=== PATIENT | female | born 1995 | race Caucasian/White ===

== ENCOUNTER 2017-05-15 21:45 | Emergency (ER) | payer SELFPAY ==
[2017-05-15 22:19] VITALS: BP 128/75; PULSE 75; TEMP 98.5; O2SAT 100
--- NOTE | 2017-05-15 23:37 | C.PDOC ---
History Of Present Illness 21 year old female presents to the ED with complaints of a spot of erythema to the right breast noticed today. She denies itching, swelling, or pain. Time Seen by Provider: 05/15/17 22:55 Chief Complaint (Nursing): Abnormal Skin Integrity History Per: Patient History/Exam Limitations: no limitations Onset/Duration Of Symptoms: Hrs Current Symptoms Are (Timing): Still Present Quality Of Symptoms: denies: Painful, Itching, Swollen, Draining Severity: None Pain Scale Rating Of: 0 Recent travel outside of the [place]: No Past Medical History Reviewed: Historical Data, Nursing Documentation, Vital Signs Vital Signs: Last Vital Signs Temp 98.5 F 05/15/17 22:15 Pulse 75 05/15/17 22:15 Resp 20 05/15/17 23:46 BP 128/75 05/15/17 22:15 Pulse Ox 100 05/15/17 23:40 Family History: States: Unknown Family Hx - Social History Hx Alcohol Use: No Hx Substance Use: No - Immunization History Hx Tetanus Toxoid Vaccination: No Hx Influenza Vaccination: No Hx Pneumococcal Vaccination: No Review Of Systems Constitutional: Negative for: Fever, Chills ENT: Negative for: Mouth Swelling, Throat Swelling Respiratory: Negative for: Cough, Shortness of Breath Skin: Positive for: Other (spot of erythema to right breast ) Physical Exam - Physical Exam Appears: Non-toxic, No Acute Distress Skin: Warm, Dry, Other (less than 1 cm spot of erythema to right breast that is not raised. ) Head: Atraumatic, Normacephalic Eye(s): bilateral: Normal Inspection, PERRL, EOMI Ear(s): Bilateral: Normal Oral Mucosa: Moist Neck: Supple Chest: Symmetrical, No Deformity, Other (no breast mass palpable ) Neurological/Psych: Oriented x3 ED Course And Treatment O2 Sat by Pulse Oximetry: 100 (RA) Progress Note: Patient discharged jayy prescription for steroid cream. Instructed to follow up with html web developer in two days if erythema does not improve. Disposition - Disposition Disposition: HOME/ ROUTINE Disposition Time: 23:34 Condition: STABLE Additional Instructions: Follow up within 1-2 days. Return to Ed if feel worse. Prescriptions: Triamcinolone 0.025 % [Triamcinolone 0.025 % Cream] 1 appl EXT BID #1 tube Instructions: Acute Rash (ED) Forms: [employer] (Faroese) - Clinical Impression Clinical Impression: Rash - PA / COUNSELING DEPARTMENT CHAIR / Resident Statement MD/DO has reviewed & agrees with the documentation as recorded. - Scribe Statement The provider has reviewed the documentation as recorded by the Scribreinaldo Niño All medical record entries made by the Karanibreinaldo were at my direction and personally dictated by me. I have reviewed the chart and agree that the record accurately reflects my personal performance of the history, physical exam, medical decision making, and the department course for this patient. I have also personally directed, reviewed, and agree with the discharge instructions and disposition.
[2017-05-15 23:46] VITALS: RESP 20
== END 2017-05-15 23:46 | disposition home or self-care (01) ==
LOC: C.ER 21:45
DX: R21 Rash and other nonspecific skin eruption (principal)

== ENCOUNTER 2017-07-28 07:41 | Emergency (ER) | payer OTHER ==
[2017-07-28 07:46] VITALS: TEMP 98.1; O2SAT 99
--- NOTE | 2017-07-28 08:11 | C.PDOC ---
History Of Present Illness 21-year-old female, presents to the emergency department with complaints of lump to breast. Patient states she noted lumps on her right breast on and off, for the past few days. States when she woke up this morning, she also noticed a small red rash next to the areola. Patients LMP was two weeks ago, she denies . Time Seen by Provider: 07/28/17 07:58 Chief Complaint (Nursing): Breast Problem Past Medical History Vital Signs: Last Vital Signs Temp 98.1 F 07/28/17 07:43 Pulse 88 07/28/17 08:45 Resp 20 07/28/17 08:45 BP 120/78 07/28/17 08:45 Pulse Ox 99 07/28/17 10:00 Family History: States: Unknown Family Hx - Social History Hx Alcohol Use: No Hx Substance Use: No - Immunization History Hx Tetanus Toxoid Vaccination: (unk) Hx Influenza Vaccination: No Hx Pneumococcal Vaccination: (unk) Review Of Systems Except As Marked, All Systems Reviewed And Found Negative. Constitutional: Negative for: Fever Cardiovascular: Negative for: Chest Pain, Palpitations Respiratory: Negative for: Cough, Shortness of Breath Gastrointestinal: Negative for: Vomiting Musculoskeletal: Negative for: Back Pain Neurological: Negative for: Weakness, Numbness, Headache Physical Exam - Physical Exam Appears: Non-toxic, No Acute Distress Skin: Warm, Dry, Rash (right breast, see breast exam) Head: Atraumatic, Normacephalic Nose: Normal Oral Mucosa: Moist Lips: Normal Appearing Lymphatic: No Adenopathy Chest: Symmetrical, Other (Palpable mass to right breast 12 o clock. Small fading erythematous macule adjacent to areola. No lymphadenopathy. Left breast normal.) Cardiovascular: Rhythm Regular, No Murmur Respiratory: Normal Breath Sounds, No Accessory Muscle Use Gastrointestinal/Abdominal: Soft, No Tenderness Extremity: Normal ROM Neurological/Psych: Oriented x3 ED Course And Treatment O2 Sat by Pulse Oximetry: 99 (on RA) Pulse Ox Interpretation: Normal Disposition Counseled Patient/Family Regarding: Diagnosis, Need For Followup - Disposition Referrals: [facility] [Outside] [facility] [Outside] Baljit Leblanc MD [Staff Provider] - Disposition: HOME/ ROUTINE Disposition Time: 08:06 Condition: GOOD Additional Instructions: FOLLOW UP WITH PMD/CLINIC AND SURGEON FOR FURTHER EVALUATION OF BREAST RASH AND BREAST LUMP. IF ANY NEW CONCERNING SYMPTOMS DEVELOP RETURN TO ED. Instructions: Breast Mass (ED) Forms: [facility] (Telugu), General Discharge Instructions - Clinical Impression Clinical Impression: Lump of breast, right, Rash - Scribe Statement The provider has reviewed the documentation as recorded by the Scribe (Mauro Pan)
[2017-07-28 09:03] VITALS: BP 120/78; PULSE 88; RESP 20
== END 2017-07-28 09:02 | disposition home or self-care (01) ==
LOC: C.ER 07:41
DX: N63.10 Unspecified lump in the right breast, unspecified quadrant (principal); R21 Rash and other nonspecific skin eruption

== ENCOUNTER 2017-09-13 14:54 | Emergency (ER) | payer MEDICAID ==
[2017-09-13 15:07] VITALS: RESP 16
[2017-09-13] MEDS ORDERED: Bacitracin 500 Units/gm Oint Foilpak UD TOP ONE (16:14)
[2017-09-13] MEDS ORDERED: Tetanus/Diphtheria Toxoids 0.5 ml Syringe IM ONE (16:17)
--- NOTE | 2017-09-13 16:19 | C.PDOC ---
History Of Present Illness 21 y/o female c/o laceration to right hand s/p washing dishes, glass broke in hand, no numbness or tingling, no difficulty moving finger. last tdap unknown Time Seen by Provider: 09/13/17 16:14 Chief Complaint (Nursing): Abnormal Skin Integrity History Per: Patient History/Exam Limitations: no limitations Onset/Duration Of Symptoms: Hrs (2) Current Symptoms Are (Timing): Still Present Location Of Injury: Right: Hand Quality Of Symptoms: Painful Past Medical History Reviewed: Historical Data, Nursing Documentation, Vital Signs Vital Signs: Last Vital Signs Temp 97.7 F 09/13/17 17:13 Pulse 69 09/13/17 17:13 Resp 16 09/13/17 17:13 BP 99/62 L 09/13/17 17:13 Pulse Ox 98 09/13/17 17:13 - Medical History PMH: No Chronic Diseases Family History: States: Unknown Family Hx - Social History Hx Alcohol Use: No Hx Substance Use: No - Immunization History Hx Tetanus Toxoid Vaccination: (unk) Hx Influenza Vaccination: No Hx Pneumococcal Vaccination: (unk) Review Of Systems Constitutional: Negative for: Fever, Chills Skin: Positive for: Other (laceration) Neurological: Negative for: Weakness, Numbness Physical Exam - Physical Exam Appears: Non-toxic, No Acute Distress Skin: Warm, Dry, Other (2 cm laceration to right medial hand distal to 5th finger. ) Extremity: Other (from right hand, fingers and wrist) Pulses: Right Radial: Normal Neurological/Psych: Oriented x3, Normal Speech, Normal Cognition, Normal Motor, Normal Sensation ED Course And Treatment O2 Sat by Pulse Oximetry: 97 Laceration - Laceration Repair right hand Wound Length (In cm): 2 Description Of Wound: Linear, Clean Wound Cleansed With: Betadine Anesthesia: Lidocaine 1% Wound Examination: Irrigated With Saline, No FB With Wound Exploration, No Tendon Injury With Wound Exploration Wound Closure: Suture (#5) Suture Technique And Material Used: Interrupted, Nylon (4-0) Wound Complexity: Simple Medical Decision Making Medical Decision Making: laceration from broken glass when washing dishes. laceration repaited, tdap updated. d/c home Disposition Counseled Patient/Family Regarding: Diagnosis, Need For Followup - Disposition Disposition: HOME/ ROUTINE Disposition Time: 17:08 Condition: STABLE Additional Instructions: Keep hand clean and dry. Cahnge dressing daily, wash with soap and water, apply antibiotic ointment. Return to ER for any sign of infections, such as redness. swelling. Tylenol or Motrin for pain. Suture removal 7-10 days. Instructions: Care For Your Stitches (ED), Laceration (ED) Forms: General Discharge Instructions, [facility] (Japanese) - Clinical Impression Clinical Impression: Laceration of right hand
[2017-09-13] MEDS ORDERED: Lidocaine 1% Inj (20ml) INFIL ONE (16:20)
[2017-09-13] MEDS ORDERED: Bacitracin 500 Units/gm Oint Foilpak UD ONE (16:24)
[2017-09-13] MEDS ORDERED: Lidocaine Hydrochloride 5 ML INJ ONE (16:25)
[2017-09-13 17:14] VITALS: BP 99/62; PULSE 69; TEMP 97.7
[2017-09-13 22:37] VITALS: O2SAT 97
== END 2017-09-13 17:13 | disposition home or self-care (01) ==
LOC: C.ER 14:54
DX: S61.411A Laceration without foreign body of right hand, initial encounter (principal); W25.XXXA Contact with sharp glass, initial encounter; Y93.G1 Activity, food preparation and clean up

== ENCOUNTER 2017-09-22 15:39 | Emergency (ER) | payer MEDICAID ==
[2017-09-22 15:44] VITALS: PULSE 77; RESP 20; TEMP 98; O2SAT 99
[2017-09-22 15:46] VITALS: BP 120/79
--- NOTE | 2017-09-22 16:08 | C.PDOC ---
History Of Present Illness R HAND SUTURE REMOVAL. PLACED 09/13. HEALING WELL EXAM NAD SKIN +HEALED LAC R HAND. NO INFXN, MARU, DC PROC 5 SUTURES REMOVED W 11 BLADE WO DIFF. PT TOLERATED WELL. MILD WOUND DEHISC. STERISTRIPS APPLIED Time Seen by Provider: 09/22/17 16:01 Chief Complaint (Nursing): Suture/Staple Removal History Per: Patient History/Exam Limitations: no limitations Past Medical History Reviewed: Historical Data, Nursing Documentation, Vital Signs Vital Signs: Last Vital Signs Temp 98 F 09/22/17 15:43 Pulse 77 09/22/17 15:43 Resp 20 09/22/17 15:43 BP 120/79 09/22/17 15:45 Pulse Ox 99 09/22/17 17:33 - Medical History PMH: No Chronic Diseases Surgical History: No Surg Hx Family History: States: No Known Family Hx - Social History Hx Alcohol Use: No Hx Substance Use: No - Immunization History Hx Tetanus Toxoid Vaccination: (unk) Hx Influenza Vaccination: No Hx Pneumococcal Vaccination: (unk) Review Of Systems Except As Marked, All Systems Reviewed And Found Negative. Physical Exam - Physical Exam Appears: Non-toxic, No Acute Distress Skin: Normal Color, Warm, Other (healed laceration to right hand, no infection, no swelling, no discharge) Head: Atraumatic, Normacephalic Eye(s): bilateral: Normal Inspection Neurological/Psych: Oriented x3, Normal Speech, Normal Motor, Normal Sensation ED Course And Treatment O2 Sat by Pulse Oximetry: 99 (RA) Pulse Ox Interpretation: Normal Medical Decision Making Medical Decision Making: PROC: 5 SUTURES REMOVED W 11 BLADE WO DIFF. PT TOLERATED WELL. MILD WOUND DEHISC. STERISTRIPS APPLIED Disposition Counseled Patient/Family Regarding: Diagnosis, Need For Followup - Disposition Referrals: [facility] [Outside] [facility] [Outside] Disposition: HOME/ ROUTINE Disposition Time: 16:09 Condition: IMPROVED Instructions: Chronic Wound Care (ED), Steristrips (ED) Forms: [facility] (Yi) - Clinical Impression Clinical Impression: Removal of suture, Wound dehiscence - Scribe Statement The provider has reviewed the documentation as recorded by the Scribe Dakota Cee Provider Attestation: All medical record entries made by the Scribe were at my direction and personally dictated by me. I have reviewed the chart and agree that the record accurately reflects my personal performance of the history, physical exam, medical decision making, and the department course for this patient. I have also personally directed, reviewed, and agree with the discharge instructions and disposition.
== END 2017-09-22 16:30 | disposition home or self-care (01) ==
LOC: C.ER 15:39
DX: Z48.02 Encounter for removal of sutures (principal); T81.30XA Disruption of wound, unspecified, initial encounter; Y84.9 Medical procedure, unspecified as the cause of abnormal reaction of the patient, or of later complication, without mention of misadventure at the time of the procedure

== ENCOUNTER 2017-09-26 23:22 | Emergency (ER) | payer MEDICAID ==
[2017-09-27] VITALS: RESP 16; O2SAT 100
[2017-09-27] MEDS ORDERED: MethylPREDNISolone 40 mg Vial IM STA (00:36)
--- NOTE | 2017-09-27 02:04 | C.PDOC ---
History Of Present Illness 21 y/o female presents to the ED for evaluation of lip swelling for the last few hours. Patient states she ate chili with white rice and corn and noticed some swelling to her lips shortly after. Notes the lips have blisters with some liquid draining. Patient then took Benadryl and found slight relief but noticed her symptoms worsened again once she ate the meal again. Patient denies throat swelling/itchiness, rash, cough, shortness of breath, nausea, vomiting. Patient also states she was recently evaluation in the ED for a hand laceration and had steri-strips applied to the area. She requests re-application of the steri strips. Denies pain, discharge, or new injuries. Time Seen by Provider: 09/27/17 00:01 Chief Complaint (Nursing): Allergic Reaction History Per: Patient History/Exam Limitations: no limitations Onset/Duration Of Symptoms: Hrs Current Symptoms Are (Timing): Better Context: Food Possible Cause: Food Associated Symptoms: denies: Skin Rash, Swelling Home/EMS Treatment: Benadryl Additional History Per: Patient Past Medical History Reviewed: Historical Data, Nursing Documentation, Vital Signs Vital Signs: Last Vital Signs Temp 98.3 F 09/27/17 02:24 Pulse 54 L 09/27/17 02:24 Resp 16 09/27/17 02:24 BP 111/74 09/27/17 02:24 Pulse Ox 100 09/27/17 04:30 - Medical History PMH: No Chronic Diseases Surgical History: No Surg Hx Family History: States: Unknown Family Hx - Social History Hx Alcohol Use: No Hx Substance Use: No - Immunization History Hx Tetanus Toxoid Vaccination: (unk) Hx Influenza Vaccination: No Hx Pneumococcal Vaccination: (unk) Review Of Systems ENT: Negative for: Throat Swelling Respiratory: Negative for: Cough, Shortness of Breath Gastrointestinal: Negative for: Nausea, Vomiting Skin: Positive for: Other (blistering to lip ). Negative for: Rash Physical Exam - Physical Exam Appears: Non-toxic, No Acute Distress Skin: Warm, Dry, No Rash, Other (1cm wound to right hand with open flap. no erythema or discharge ) Head: Atraumatic, Normacephalic Eye(s): bilateral: Normal Inspection, EOMI Nose: Normal Oral Mucosa: Moist Tongue: Normal Appearing, No Swelling Lips: Other (mild upper and lower lip swelling with some vesicles noted ) Throat: Normal, No Erythema, No Exudate Neck: Normal ROM, Supple Chest: Symmetrical, No Deformity, No Tenderness Cardiovascular: Rhythm Regular Respiratory: Normal Breath Sounds, No Rales, No Rhonchi, No Wheezing Extremity: Normal ROM, Capillary Refill (less than 2 seconds ) Neurological/Psych: Oriented x3, Normal Speech, Normal Cognition ED Course And Treatment O2 Sat by Pulse Oximetry: 100 (on RA) Pulse Ox Interpretation: Normal Progress Note: Claritin PO, Pepcid PO, Solu-Medrol IM administered. Right hand wound was cleaned and steri strips applied by RN. On reassessment, patient is resting comfortably, showing no signs of respiratory distress. Swallowing without difficulty. Lungs CTA. Patient is stable for discharge and is advised to f/u with her PMD within 1-2 days for further evaluation and/or return to the ED if symptoms persist or worsen. Pt was seen and evaluated by Dr Gorman, agree dupon plan and discharge. Disposition - Disposition Disposition: HOME/ ROUTINE Disposition Time: 02:04 Condition: STABLE Additional Instructions: Continue pepcid and benadryl. Return to ER if symptoms persist or worsen. Follow up with operations consultant and PMD in 1-2 days. Prescriptions: DiphenhydrAMINE [Benadryl] 25 mg PO Q6 #20 cap Epinephrine HCl [Epipen Auto-Injector] 0.3 mg IM ONCE PRN #1 unit PRN Reason: Anaphylaxis predniSONE [Prednisone] 40 mg PO DAILY #8 tab Instructions: General Allergic Reaction (ED) Forms: [facility] (Marshallese) - Clinical Impression Clinical Impression: Allergic reaction - PA / PRACTICE ASSISTANT / Resident Statement MD/DO has reviewed & agrees with the documentation as recorded. - Scribe Statement The provider has reviewed the documentation as recorded by the Scribe (Petty Richards) All medical record entries made by the Scribe were at my direction and personally dictated by me. I have reviewed the chart and agree that the record accurately reflects my personal performance of the history, physical exam, medical decision making, and the department course for this patient. I have also personally directed, reviewed, and agree with the discharge instructions and disposition.
[2017-09-27 02:24] VITALS: BP 111/74; PULSE 54; TEMP 98.3
== END 2017-09-27 02:24 | disposition home or self-care (01) ==
LOC: C.ER 23:22
DX: T78.40XA Allergy, unspecified, initial encounter (principal); X58.XXXA Exposure to other specified factors, initial encounter
CPT/HCPCS: 96372; 99283; J2920

== ENCOUNTER 2018-10-17 18:02 | Emergency (ER) | payer SELFPAY ==
[2018-10-17] MEDS ORDERED: Dexamethasone 4 mg/1 ml IV STA (19:19)
[2018-10-17] MEDS ORDERED: Amoxicillin-Clav 875-125 mg Tab PO STA (19:20)
--- NOTE | 2018-10-17 19:29 | C.PDOC ---
History Of Present Illness 22 year old female presents with 3 days of sore throat and fever. Contrary to triage, patient denies SOB or other complaints. Time Seen by Provider: 10/17/18 19:08 Chief Complaint (Nursing): Flu-like Symptoms History Per: Patient History/Exam Limitations: no limitations Onset/Duration Of Symptoms: Days (3) Current Symptoms Are (Timing): Still Present Location Of Pain: None Associated Symptoms: Fever, Sore Throat. denies: Other (SOB) Recent travel outside of the [place]: No Past Medical History Reviewed: Historical Data, Nursing Documentation, Vital Signs Vital Signs: Last Vital Signs Temp 99.1 F 10/17/18 18:15 Pulse 112 H 10/17/18 18:15 Resp 18 10/17/18 18:15 BP 114/78 10/17/18 18:15 Pulse Ox 96 10/17/18 18:15 Family History: States: Unknown Family Hx - Social History Hx Alcohol Use: No Hx Substance Use: No - Immunization History Hx Tetanus Toxoid Vaccination: (unk) Hx Influenza Vaccination: No Hx Pneumococcal Vaccination: (unk) Review Of Systems Constitutional: Positive for: Fever ENT: Positive for: Throat Pain Cardiovascular: Negative for: Chest Pain, Palpitations Respiratory: Negative for: Cough, Shortness of Breath Gastrointestinal: Negative for: Nausea, Vomiting Neurological: Negative for: Weakness, Numbness Physical Exam - Physical Exam Appears: Non-toxic Skin: Normal Color, Warm, Dry Head: Atraumatic, Normacephalic Eye(s): bilateral: Normal Inspection Ear(s): Bilateral: Normal Nose: Normal Oral Mucosa: Moist Throat: Other (Bilateral kissing tonsils with exudates, no sign of peritonsillar abscess) Neck: Normal, Supple Lymphatic: Adenopathy (Bilateral cervical) Chest: Symmetrical, No Tenderness Cardiovascular: Rhythm Regular Respiratory: Normal Breath Sounds, No Rales, No Rhonchi, No Wheezing Gastrointestinal/Abdominal: Soft, No Tenderness Neurological/Psych: Oriented x3, Normal Speech ED Course And Treatment O2 Sat by Pulse Oximetry: 96 (Room air) Pulse Ox Interpretation: Normal Medical Decision Making Medical Decision Making: Assessment: Pharyngitis. Plan: Decadron, toradol, augmentin. On reevaluation, patient reports feeling better, requests to be discharged, advi sed to follow up with clinic within 2 days. Disposition Counseled Patient/Family Regarding: Studies Performed, Diagnosis, Need For Followup, Rx Given - Disposition Referrals: [facility] [Outside] Disposition: HOME/ ROUTINE Disposition Time: 20:33 Condition: STABLE Additional Instructions: follow up with your doctor within 2 days call to make an appointment take medication as prescribed return to ER if symptoms worsens or progress Prescriptions: Amoxicillin 875 mg PO BID #20 tablet Naproxen [Naprosyn] 500 mg PO BID PRN #16 tab PRN Reason: Pain, Moderate (4-7) Instructions: Sore Throat, Adult (DC) Forms: [facility] (Honduran), General Discharge Instructions - Clinical Impression Clinical Impression: Pharyngitis - Scribe Statement The provider has reviewed the documentation as recorded by the Scribreinaldo Clark All medical record entries made by the Karanibreinaldo were at my direction and personally dictated by me. I have reviewed the chart and agree that the record accurately reflects my personal performance of the history, physical exam, medical decision making, and the department course for this patient. I have also personally directed, reviewed, and agree with the discharge instructions and disposition.
[2018-10-17] MEDS ORDERED: Amoxicillin-Clav 875-125 mg Tab PO ONE (19:50)
[2018-10-17] MEDS ORDERED: Dexamethasone 4 mg/1 ml ONE (19:50)
[2018-10-17 20:50] VITALS: BP 103/69; PULSE 58; RESP 20; TEMP 97.8; O2SAT 100
== END 2018-10-17 20:50 | disposition home or self-care (01) ==
LOC: C.ER 18:02
DX: J02.9 Acute pharyngitis, unspecified (principal)
CPT/HCPCS: 81025; 96374; 96375; 99284; J1100; J1885

== ENCOUNTER 2019-01-02 16:59 | Emergency (ER) | payer MEDICAID, OTHER ==
[2019-01-02 17:07] VITALS: BP 104/73; PULSE 71; RESP 17; TEMP 97.7; O2SAT 97
--- NOTE | 2019-01-02 18:22 | RAD ---
Date of service: 01/02/2019 PROCEDURE: Radiographs of the Lumbar Spine. Three views. HISTORY: fall COMPARISON: None available. FINDINGS: BONES: Alignment appears satisfactory. No listhesis. No acute displaced fracture identified. DISC SPACES: Unremarkable. OTHER FINDINGS: None. IMPRESSION: No acute displaced fracture or subluxation identified.
--- NOTE | 2019-01-02 18:31 | C.PDOC ---
History Of Present Illness 23 y/o female presents to ED stating that she was walking in the rain when she slipped and fell on her back. Denies LOC. States that she landed on her buttocks at first but then fell backwards, hitting her entire back. She now complains of back pain. Patient ambulates with steady gait. Time Seen by Provider: 01/02/19 17:06 Chief Complaint (Nursing): Back Pain History Per: Patient History/Exam Limitations: no limitations Onset/Duration Of Symptoms: Hrs Current Symptoms Are (Timing): Still Present Past Medical History Reviewed: Historical Data, Nursing Documentation, Vital Signs Vital Signs: Last Vital Signs Temp 97.7 F 01/02/19 17:02 Pulse 71 01/02/19 17:02 Resp 17 01/02/19 17:02 BP 104/73 01/02/19 17:02 Pulse Ox 97 01/02/19 17:02 Primary Care Provider: FAMILY PROVIDER,NO Family History: States: No Known Family Hx - Social History Hx Alcohol Use: Yes Hx Substance Use: No - Immunization History Hx Tetanus Toxoid Vaccination: Yes Hx Influenza Vaccination: No Hx Pneumococcal Vaccination: No Review Of Systems Except As Marked, All Systems Reviewed And Found Negative. Constitutional: Negative for: Fever, Chills Cardiovascular: Negative for: Chest Pain Respiratory: Negative for: Shortness of Breath Gastrointestinal: Negative for: Nausea, Vomiting, Abdominal Pain Genitourinary: Negative for: Dysuria, Hematuria Musculoskeletal: Positive for: Back Pain. Negative for: Neck Pain Neurological: Negative for: Headache, Dizziness, Other (LOC) Physical Exam - Physical Exam Appears: Non-toxic, No Acute Distress Skin: Warm, Dry Head: Normacephalic Eye(s): bilateral: Normal Inspection Nose: Normal Oral Mucosa: Moist Neck: Normal ROM, Supple Back: No CVA Tenderness, Other (tenderness to palpation of upper and lower back, no ecchymosis or abrasions) Extremity: No Pedal Edema, No Deformity, No Swelling Extremity: Bilateral: Atraumatic, Normal Color And Temperature, Normal ROM Neurological/Psych: Oriented x3, Normal Speech, Normal Motor, Normal Sensation Gait: Steady ED Course And Treatment O2 Sat by Pulse Oximetry: 97 (RA) Pulse Ox Interpretation: Normal - Other Rad Lumbar Spine XR X-Ray: Read By Radiologist Interpretation: FINDINGS: BONES: Alignment appears satisfactory. No listhesis. No acute displaced fracture identified. DISC SPACES: Unremarkable. OTHER FINDINGS: None. IMPRESSION: No acute displaced fracture or subluxation identified. T-spine xray X-Ray: Interpreted by Me Interpretation: No acute fractures, no lesions Progress Note: Urine negative for . LS spine and dorsal spine XR ordered. Both x-rays are negative, no acute fractures. Patient given tramadol for the pain and will be discharged home. Disposition - Disposition Disposition: HOME/ ROUTINE Disposition Time: 18:43 Condition: STABLE Additional Instructions: Follow up with PMD / Clinic within 1-2 days. Return to ED if feel worse. Prescriptions: Cyclobenzaprine [Cyclobenzaprine HCl] 10 mg PO TID #15 tab Lidocaine 5% [Lidoderm] 1 patch TP DAILY #30 patch Ibuprofen [Motrin Tab] 600 mg PO Q8 #30 tab Instructions: Contusion (DC) Forms: [facility] (Djiboutian), Work Excuse - Clinical Impression Clinical Impression: Contusion of back - PA / WHOLESALE MANAGER / Resident Statement MD/DO has reviewed & agrees with the documentation as recorded. - Scribe Statement The provider has reviewed the documentation as recorded by the Scribe Elle Jaimes All medical record entries made by the Karanibreinaldo were at my direction and personally dictated by me. I have reviewed the chart and agree that the record accurately reflects my personal performance of the history, physical exam, medical decision making, and the department course for this patient. I have also personally directed, reviewed, and agree with the discharge instructions and disposition.
--- NOTE | 2019-01-02 18:32 | C.PDOC ---
Time Seen by Provider: 01/02/19 17:06 Chief Complaint (Nursing): Back Pain Past Medical History Vital Signs: Last Vital Signs Temp 97.7 F 01/02/19 17:02 Pulse 71 01/02/19 17:02 Resp 17 01/02/19 17:02 BP 104/73 01/02/19 17:02 Pulse Ox 97 01/02/19 17:02 Primary Care Provider: FAMILY PROVIDER,NO Family History: States: Unknown Family Hx - Social History Hx Alcohol Use: Yes Hx Substance Use: No - Immunization History Hx Tetanus Toxoid Vaccination: Yes Hx Influenza Vaccination: No Hx Pneumococcal Vaccination: No ED Course And Treatment O2 Sat by Pulse Oximetry: 97 Disposition - Disposition Disposition: HOME/ ROUTINE Disposition Time: 18:29 Condition: STABLE Additional Instructions: Follow up with PMD / Clinic within 1-2 days. Return to ED if feel worse. Prescriptions: Cyclobenzaprine [Cyclobenzaprine HCl] 10 mg PO TID #15 tab Lidocaine 5% [Lidoderm] 1 patch TP DAILY #30 patch Ibuprofen [Motrin Tab] 600 mg PO Q8 #30 tab Instructions: Contusion (DC) Forms: [employer] (Persian), Work Excuse - Clinical Impression Clinical Impression: Contusion of back
--- NOTE | 2019-01-03 06:39 | RAD ---
Date of service: 01/02/2019 HISTORY: fall COMPARISON: No prior. TECHNIQUE: 2 views obtained. FINDINGS: BONES: Vertebral body heights are maintained. DISC SPACES: Disc space heights are preserved. SOFT TISSUES: Visualized lung ma appear clear. OTHER FINDINGS: None. IMPRESSION: No thoracic spine fracture or subluxation identified.
== END 2019-01-02 18:55 | disposition home or self-care (01) ==
LOC: C.ER 16:59
DX: S20.229A Contusion of unspecified back wall of thorax, initial encounter (principal); W01.0XXA Fall on same level from slipping, tripping and stumbling without subsequent striking against object, initial encounter